=== PATIENT | male | born 1965 | race African-American/Black ===

== ENCOUNTER 2019-05-14 19:56 | Inpatient (IN) | payer OTHER ==
[~2019-05-14] VITALS: Ht 180.3 cm; Wt 90.7 kg
[2019-05-14 01:30] VITALS: BP 128/86
--- NOTE | 2019-05-14 20:20 | NUR ---
bibs for c/o CP since 1799. pt described pain as pressure like on mid chest, non- radiating 12/28. has PMH of HTN. did not take any medication [facility]. pt was placed on a monitor. VSS. will cont to monitor ,
[2019-05-14] MEDS ORDERED: ONDANSETRON HCL/PF 4 MG/2 ML VIAL ONE (20:22)
[2019-05-14] MEDS ORDERED: NITROGLYCERIN PACKET 1 GM PACKET ONE (20:22)
[2019-05-14] MEDS ORDERED: ASPIRIN 325 MG TABLET ONE (20:22)
[2019-05-14] MEDS ORDERED: MORPHINE SULFATE INJ 2 MG/ML DISP.SYRIN ONE ×2 (20:22→21:51)
[2019-05-14 20:30] LABS: BASOPHILS % (AUTO) 0.4 % (0.0-2.0); HEMATOCRIT 29 % (39-51); HEMOGLOBIN 9.3 g/dL (13.5-17.5); LYMPHOCYTES # (AUTO) 1.9 /CMM (0.8-4.8); LYMPHOCYTES % (AUTO) 22.1 % (20.0-44.0); MEAN CORPUSCULAR HGB CONC 33 g/dl (31.0-36.0); MEAN CORPUSCULAR VOLUME 81 fL (80-96); MONOCYTES # (AUTO) 0.9 /CMM (0.1-1.30); MONOCYTES % (AUTO) 10.2 % (2.0-12.0); NEUTROPHILS # (AUTO) 5.7 /CMM (1.8-8.9); NEUTROPHILS % (AUTO) 66.3 % (43.0-81.0); PLATELET COUNT (AUTO) 312 /CMM (150-450); RED BLOOD CELL COUNT(AUTO) 3.53 MIL/uL (4.5-6.0); WHITE BLOOD COUNT (AUTO) 8.6 K/uL (4.3-11.0)
[2019-05-14] MEDS ORDERED: NITROGLYCERIN PACKET 1 GM PACKET TD ONE (20:30)
[2019-05-14] MEDS ORDERED: ASPIRIN 325 MG TABLET PO ONE (20:30)
[2019-05-14] MEDS ORDERED: MORPHINE SULFATE INJ 2 MG/ML DISP.SYRIN IV ONE ×2 (20:30→22:00)
[2019-05-14] MEDS ORDERED: ONDANSETRON HCL/PF - ER 4 MG/2 ML VIAL IV ONE (20:30)
[2019-05-14] MEDS ORDERED: ONDANSETRON HCL/PF 4 MG/2 ML VIAL IVP ONE (20:30)
[2019-05-14 20:39] LABS: CREATININE 1.1 mg/dL (0.6-1.3); POTASSIUM 4.2 mmol/L (3.5-5.1)
[2019-05-14 20:44] LABS: ALBUMIN 2.8 g/dL (3.4-5.0); BILIRUBIN,DIRECT 0.1 mg/dL (0.0-0.2); BILIRUBIN,TOTAL 0.3 mg/dL (0.2-1.0)
[2019-05-14] MEDS ORDERED: LOSA25TA3 PO (21:08)
--- NOTE | 2019-05-14 21:08 | NUR ---
med recon done per pt's report
--- NOTE | 2019-05-14 22:01 | NUR ---
Dr. Rick Estrada's design assistant at the bed side
[2019-05-14] MEDS ORDERED: LIDOCAINE VISCOUS 2% UD 15 ML UDC ONE (22:46)
[2019-05-14] MEDS ORDERED: MAG HYDROX/AL HYDROX/SIMETH 30 ML UDC ONE (22:46)
--- NOTE | 2019-05-14 22:50 | NUR ---
pt was reevaluated for pain. pt reported no relief w/ the morphin given and pointed at his epi gastric area for pain. Dr. Ramirez made aware w/ an order for GI coctail (maalox and xylocaine) . new order noted and carried out. will cont to monitor ,
[2019-05-14] MEDS ORDERED: MAG HYDROX/AL HYDROX/SIMETH 30 ML UDC PO ONE (23:00)
[2019-05-14] MEDS ORDERED: LIDOCAINE VISCOUS 2% UD 15 ML UDC MM ONE (23:00)
[2019-05-15] MEDS ORDERED: BUMETANIDE INJ 4 MG in IV NS 0.9% 24 ML IV ONE ×2
--- NOTE | 2019-05-15 00:21 | NUR ---
TROPONIN ORDER WAS CLARIFIED W/ DR. RODNEY. TROPONIN TO BE DRAWN AT MID NIGHT. JOURNEY LINEMAN MADE AWARE.
--- NOTE | 2019-05-15 00:29 | NUR ---
REPORT GIVEN TO LUIS A ON THIRD FLOOR
--- NOTE | 2019-05-15 01:01 | NUR ---
PT WAS TRANSFERRED TO 322-2 UNDER ACLS
--- NOTE | 2019-05-15 01:02 | NUR ---
TELE/RN ADMITTING NOTES: REPORT GIVEN BY HERMINIO FROM ER. PATIENT ARRIVED TO THE UNIT VIA GURNEY WITH ACLS PROTOCOL IN STABLE CONDITION. PATIENT IS ALERT AND ORIENTED X4. VERBALLY RESPONSIVE AND ABLE TO MAKE NEEDS KNOWN. ORIENTED PT TO THE UNIT AND TO THE STAFF. NO SOB NOTED, NO S/S OF ACUTE DISTRESS. BREATHING EVEN AND UNLABORED. PATIENT COMPLAINS OF PAIN LOCATED ON HIS MIDDLE CHEST RADIATING TO THE EPIGASTRIC REGION. PER PT "THE MORPHINE HELPED FOR 5 MINUTES AND IT STARTED COMING BACK AGAIN", VITAL SIGNS WNL. BP 128/86. HR:79. RR: 20 O2SAT: 99%, TEMP: 98. ON TELE MONITORING WITH READING OF SR WITH OCCASIONAL PVCS, HR RANGING ON THE 80S. BELONGINGS LIST CHECKED. SKIN ASSESSMENT DONE, INTACT AND NO OPEN WOUNDS. PATIENT IS AMBULATORY AND PREFERS TO USE THE URINAL. SAFETY MEASURES ARE INITIATED, BED IS IN LOW, LOCKED POSITION WITH SR UP X2. ORDERS NOTED AND CARRIED OUT. WILL CONTINUE PLAN OF CARE MONITOR PATIENT ACCORDINGLY.
[2019-05-15 01:05] VITALS: BP 128/86
[2019-05-15] MEDS ORDERED: ONDANSETRON HCL/PF 4 MG/2 ML VIAL IVP PRN (01:30)
[2019-05-15] MEDS ORDERED: ZOLPIDEM TARTRATE 5 MG TABLET PO PRN (01:30)
[2019-05-15] MEDS ORDERED: ENOXAPARIN SODIUM 40 MG/0.4 ML DISP.SYRIN SQ SCH (01:30)
[2019-05-15] MEDS ORDERED: LIDOCAINE VISCOUS 2% UD 15 ML UDC MM PRN (01:30)
[2019-05-15] MEDS ORDERED: PANTOPRAZOLE 40 MG VIAL IV SCH (01:30)
[2019-05-15] MEDS ORDERED: Z GUARD REMEDY 2 OZ OINT TP PRN (01:30)
[2019-05-15] MEDS ORDERED: ACETAMINOPHEN 325 MG TABLET PO PRN (01:30)
--- NOTE | 2019-05-15 01:30 | NUR ---
TELE/RN NOTES: PATIENT REFUSED BUMEX 4MG IV DRIP, EXPLAINED RISKS AND BENEFITS TO THE PATIENT. STILL INSISTED REFUSING THE MED. PER PT "I DON'T WANNA TAKE ANYTHING THAT'S GONNA AFFECT MY HEART, I DON'T EVEN KNOW IF THE PROBLEM IS IN MY HEART." RIANA RODNEY NOTIFIED AND MADE AWARE. ORDERED TORADOL 15MG IV FOR PAIN Q6HRS. WILL CONTINUE MONITORING PATIENT ACCORDINGLY.
[2019-05-15] MEDS ORDERED: KETOROLAC TROMETHAMINE INJ 30 MG/ML VIAL IV PRN (02:00)
[2019-05-15] MEDS: HYDROMORPHONE 1 MG/1 ML DISP.SYRIN IV PRN ×2 (02:09→08:46)
--- NOTE | 2019-05-15 02:10 | NUR ---
TELE/RN NOTES: PATIENT COMPLAINED OF PAIN LEVEL OF 10 ON HIS CHEST AND EPIGASTRIC REGION. ADMINISTERED DILAUDID 1MG IV ORDERED. VS STABLE AND PATIENT IS STABLE. WILL CONTINUE MONITORING PT ACCORDINGLY AND REASSESS FOR PAIN.
[2019-05-15 04:00] VITALS: BP 126/74
--- NOTE | 2019-05-15 06:35 | NUR ---
TELE/RN CLOSING NOTES: PATIENT IN STABLE CONDITION. REMAINS ALERT AND ORIENTED X4. NO SOB NOTED, NO S/S OF ACUTE DISTRESS. BREATHING EVEN AND UNLABORED. PATIENT COMPLAINS OF MILD PAIN LOCATED ON HIS MIDDLE CHEST RADIATING TO THE EPIGASTRIC REGION BUT REFUSES PAIN MEDICATION AT THIS TIME. ON TELE MONITORING WITH READING OF SR WITH HIGH PVCS. HEART RATE ON THE 70S. ALL DUE MEDS GIVEN ORDERED. PATIENT KEPT CLEAN, DRY AND COMFORTABLE THROUGHOUT THE NIGHT. ALL NEEDS MET AND PROVIDED. SAFETY MEASURES ARE KEPT IN PLACE, BED IS IN LOW, LOCKED POSITION WITH SR UP X2. WILL CONTINUE PLAN OF CARE MONITOR PATIENT ACCORDINGLY.
[2019-05-15 08:00] VITALS: BP 136/87
--- NOTE | 2019-05-15 08:00 | NUR ---
TELE/RN NOTE THE PATIENT IS RECEIVED IN BED. ALERT AND ORIENTED X4. IN ROOM AIR AND DENIES SOB. RESPIRATION REGULAR AND UNLABORED. DENIES SOB. COMPLAINS OF MID CHEST PAIN 6/10 BUT DOES NOT WANT TO TAKE PAIN MEDICATION AT THIS TIME. WILL OFFERED PAIN MEDICATION AGAIN LATER. EXTERNAL TELE BOX READING IS SR 81 WITH PVC. RAC G 20 PATENT AND SALINE LOCKED. BED LOW AND LOCKED. SIDE RAILS UP X2. CALL LIGHT WIHTIN REACH. WILL CONTINUE TO MONITOR.
--- NOTE | 2019-05-15 08:39 | NUR ---
TELE/RN NOTE THE PATIENT IS SEEN BY DR WALSH AND CLEARED TO HAVE BREAKFAST.
[2019-05-15] MEDS: SUCRALFATE 1 G/10 ML UDC PO SCH ×2 (08:47→12:18)
[2019-05-15 08:57] LABS: IRON, SERUM 24 ug/dl (50-175); TOTAL IRON BINDING CAPACITY 232 ug/dl (250-450)
[2019-05-15] MEDS: SUCRALFATE 1 G TABLET PO SCH ×2 (09:00→12:00)
[2019-05-15] MEDS ORDERED: ASPIRIN EC 81 MG TABLET.DR PO SCH (09:00)
[2019-05-15] MEDS ORDERED: LOSARTAN POTASSIUM 25 MG TABLET PO SCH (09:00)
[2019-05-15 09:08] LABS: FERRITIN 24 ng/mL (8-388)
--- NOTE | 2019-05-15 13:45 | NUR ---
MS/RN NOTE THE PATIENT IS ALERT AND ORIENTED X4. SATURATION IN ROOM AIR IS AT 97%. DENIES SOB. RESPIRATION REGULAR AND UNLABORED. DENIES PAIN. IV LINE IS REMOVED FROM RAC AND NO BLEEDING FROM THE SITE. DISCHARGE EDUCATION PROVIDED TO THE PATIENT AND HE VERBALIZED UNDERSTANDING. PRESCRIPTION GIVEN TO THE PATIENT AND COPY IS SAVED IN THE CHART. THE PATIENT IS PICKED UP BY [facility]. THE PATIENT LEFT THE HOSPITAL IN STABLE CONDITION. DR TOWNSEND IS MADE AWARE OF BLOOD PRESSURE OF 151/87 AND PULSE OF 84 UPON DISCHARGE.
[2019-05-15] MEDS ORDERED: ATORVASTATIN 40 MG TABLET PO SCH (22:00)
== END 2019-05-15 13:30 | disposition home or self-care (01) | DRG 544 ==
LOC: ER 20:03 → TELE 05-15 00:35 → MED 05-15 09:38
PROVIDERS: ADMIT Nurse Practitioner Acute Care
DX: M30.1 Polyarteritis with lung involvement [Churg-Strauss] (principal); E11.9 Type 2 diabetes mellitus without complications; D64.9 Anemia, unspecified; E83.51 Hypocalcemia; E88.09 Other disorders of plasma-protein metabolism, not elsewhere classified; J45.909 Unspecified asthma, uncomplicated; Z87.891 Personal history of nicotine dependence; Z96.642 Presence of left artificial hip joint; Z83.3 Family history of diabetes mellitus; I10 Essential (primary) hypertension; R79.89 Other specified abnormal findings of blood chemistry
CPT/HCPCS: 36415; 71045-TC; 80048-TC; 80076-TC; 82728-TC; 83540-TC; 83880; 84484-TC; 85025-TC; 87081-TC; C9113; G0378; J1170; J1650; J2270; J2405; J3490; J7030